=== PATIENT | female | born 1965 | race Caucasian/White ===

== ENCOUNTER 2019-02-03 14:45 | Emergency (ER) | payer OTHER ==
[~2019-02-03] VITALS: Ht 157.5 cm; Wt 59.0 kg
== END 2019-02-03 21:36 | disposition home or self-care (01) ==
LOC: ER 14:45
DX: K57.90 Diverticulosis of intestine, part unspecified, without perforation or abscess without bleeding (principal); R10.32 Left lower quadrant pain

== ENCOUNTER 2019-11-17 12:41 | Inpatient (IN) | payer OTHER ==
[~2019-11-17] VITALS: Ht 157.5 cm; Wt 59.0 kg
== END 2019-11-25 09:35 | disposition home or self-care (01) | DRG 743 ==
LOC: O/R 11-22 05:35 → OB/GYN 11-22 05:35
PROVIDERS: ADMIT Obstetrics & Gynecology Maternal & Fetal Medicine
PROC: 0UB70ZZ Excision of Bilateral Fallopian Tubes, Open Approach (ICD-10-PCS; 2019-11-22)
PROC: 0UB20ZZ Excision of Bilateral Ovaries, Open Approach (ICD-10-PCS; 2019-11-22)
PROC: 0UT90ZL Resection of Uterus, Supracervical, Open Approach (ICD-10-PCS; principal; 2019-11-22 14:30)
DX: D25.1 Intramural leiomyoma of uterus (principal)